=== PATIENT | female | born 1955 | race African-American/Black ===

== ENCOUNTER 2024-01-18 16:26 | Emergency (ER) | payer OTHER, MEDICAID ==
[~2024-01-18] VITALS: Ht 162.6 cm; Wt 60.0 kg
[2024-01-18 16:42] VITALS: BP 174/90; PULSE 66; RESP 18; TEMP 98.4; O2SAT 99
[2024-01-18] MEDS: AMOXICILLIN/POTASSIUM CLAVULANATE 875/125MG TAB PO ONE (18:40)
[2024-01-18] MEDS: HYDROCODONE/ACETAMINOPHEN 5/325MG TABLET PO ONE (18:40)
[2024-01-18] MEDS ORDERED: IBUP-1523 MT (20:25)
[2024-01-18] MEDS ORDERED: TOPUD MT (20:25)
[2024-01-18] MEDS ORDERED: AMOX50SU15 MT (20:25)
== END 2024-01-18 18:40 | disposition home or self-care (01) ==
LOC: ER 16:26
DX: S50.11XA Contusion of right forearm, initial encounter (principal); I10 Essential (primary) hypertension; Z86.73 Personal history of transient ischemic attack (TIA), and cerebral infarction without residual deficits; Z79.899 Other long term (current) drug therapy; W54.0XXA Bitten by dog, initial encounter; Y93.89 Activity, other specified; Y92.89 Other specified places as the place of occurrence of the external cause; Y99.8 Other external cause status
CPT/HCPCS: 99283